=== PATIENT | male | born 1955 | race Caucasian/White ===

== ENCOUNTER 2020-05-29 08:57 | Inpatient (IN) ==
[2020-05-29] MEDS ORDERED: Clindamycin 900 MG/50 ML 900 MG/50 ML IV.SOLN IVPB ONE (09:16)
[2020-05-29] MEDS ORDERED: Ringers Solution, Lactated 1,000 ML IVC SCH (09:30)
[2020-05-29] MEDS ORDERED: Gabapentin 300 MG CAPSULE PO ONE (09:50)
[2020-05-29] MEDS ORDERED: Famotidine 20 MG/2 ML VIAL IVP ONE (09:50)
[2020-05-29] MEDS ORDERED: Acetaminophen IV 1,000 MG/100 ML BAG IVPB ONE (09:50)
[2020-05-29] MEDS ORDERED: *HR* OxyCODONE Immed Rel 5 MG TABLET PO PRN (09:58)
[2020-05-29] MEDS ORDERED: Ondansetron 4 MG/2 ML VIAL IVP ONE (09:58)
[2020-05-29] MEDS ORDERED: *HR* HYDROmorphone PF 0.5 MG/0.5 ML SYRINGE IVP PRN (09:58)
[2020-05-29] MEDS ORDERED: *HR* Promethazine 25 MG/ML VIAL IVP PRN (09:58)
[2020-05-29 10:30] LABS: Adenovirus Not Detected (Not Detect); Bordetella Pertussis Not Detected (Not Detect); Chlamydophila pneumoniae Not Detected (Not Detect); Coronavirus 229E Not Detected (Not Detect); Coronavirus HKU1 Not Detected (Not Detect); Coronavirus NL63 Not Detected (Not Detect); Coronavirus OC43 Not Detected (Not Detect); Human Metapneumovirus Not Detected (Not Detect); Human Rhinovirus/Enterovirus Not Detected (Not Detect); Influenza A Subtype 2009 H1 Not Detected (Not Detect); Influenza B Not Detected (Not Detect); Mycoplasma pneumoniae Not Detected (Not Detect); Parainfluenza Virus 1 Not Detected (Not Detect); Parainfluenza Virus 2 Not Detected (Not Detect); Parainfluenza Virus 3 Not Detected (Not Detect); Parainfluenza Virus 4 Not Detected (Not Detect); Respiratory Syncytial Virus Not Detected (Not Detect); SARS-CoV-2 Not Detected (Not Detect)
[2020-05-29] MEDS ORDERED: *HR* Rocuronium Bromide 50 MG/5 ML VIAL ONE (10:34)
[2020-05-29] MEDS ORDERED: Ondansetron 4 MG/2 ML VIAL ONE (10:34)
[2020-05-29] MEDS ORDERED: *HR* Succinylcholine 200 MG/10 ML VIAL IVP ONE (10:34)
[2020-05-29] MEDS ORDERED: Dexamethasone 4 MG/ML VIAL ONE (10:34)
[2020-05-29] MEDS ORDERED: *HR* FentaNYL (PF) 100 MCG/2 ML VIAL ONE ×2 (10:34→13:23)
[2020-05-29] MEDS ORDERED: Lidocaine -MPF 2% 2 ML VIAL ONE (10:34)
[2020-05-29] MEDS ORDERED: *HR* Propofol 200 MG/20 ML VIAL IVP ONE (10:35)
[2020-05-29] MEDS ORDERED: *HR* Midazolam HCl 2 MG/2 ML VIAL ONE (10:35)
[2020-05-29] MEDS ORDERED: *HR* PHENYLEPHRINE 1,000 MCG/10 ML SYRINGE IVP ONE ×3 (11:14→12:44)
[2020-05-29] MEDS ORDERED: *HR* HYDROMORPHONE 2 MG/ML VIAL ONE (13:22)
[2020-05-29] MEDS ORDERED: Naloxone 0.4 MG/ML INJ IVP PRN (14:17)
[2020-05-29] MEDS: *HR* Heparin 5,000 UNIT/ML VIAL SQ SCH ×2 (14:37→22:29)
[2020-05-29] MEDS: *HR* HYDROcodone/Acet 5/325 mg TABLET PO PRN (14:37)
[2020-05-29] MEDS: 0.9 % Sodium Chloride 1,000 ML IVC SCH (14:40)
[2020-05-29] MEDS: Gabapentin 300 MG CAPSULE PO SCH ×2 (15:44→19:25)
[2020-05-29] MEDS: Ipratropium/Albuterol Neb 3 ML IH SCH ×3 (15:48→23:18)
[2020-05-29] MEDS: Ketorolac 15 MG/ML VIAL IVP SCH ×2 (17:08→22:29)
[2020-05-29] MEDS: Famotidine 20 MG TABLET PO SCH (19:25)
[2020-05-29] MEDS: Sennosides/Docusate Sodium TABLET PO SCH (19:25)
[2020-05-30] MEDS: *HR* HYDROcodone/Acet 5/325 mg TABLET PO PRN ×3 (03:20→21:29)
[2020-05-30] MEDS: 0.9 % Sodium Chloride 1,000 ML IVC SCH (03:21)
[2020-05-30] MEDS: Ipratropium/Albuterol Neb 3 ML IH SCH ×6 (03:51→23:21)
[2020-05-30 05:33] LABS: Hematocrit 42.5 % (37.5-50.1); Hemoglobin 13.7 g/dL (12.9-16.9); Mean Corpuscular HGB Conc 32.2 g/dL (31.6-35.5); Mean Corpuscular Hemoglobin 29.7 pg (28.0-33.3); Mean Corpuscular Volume 92.2 fL (83.0-100.0); Mean Platelet Volume 9.9 fL (9.4-12.4); Platelet Count 248 K/mcL (140-400); Red Blood Count 4.61 M/mcL (4.19-5.50); Red Cell Distribution Width 13.9 % (11.5-14.5); White Blood Count 14.2 K/mcL (4.3-11.1)
[2020-05-30 05:51] LABS: % Iron Saturation 10 % (20-55); BUN/Creatinine Ratio 15 (6-26); Blood Urea Nitrogen 15 mg/dL (8-23); Calcium 8.4 mg/dL (8.6-10.3); Carbon Dioxide 23 mEq/L (23-29); Chloride 105 mEq/L (98-107); Glucose 144 mg/dL (70-105); Iron 27 mcg/dL (65-175); Magnesium 1.5 mg/dL (1.6-2.6); Osmolality,Calculated 281 (280-300); Sodium 134 mEq/L (136-145); Transferrin 184 mg/dL (203-362); eGFR For African Americans > 60 (> 60); eGFR For Non-African Americans > 60 (> 60)
[2020-05-30] MEDS: Ketorolac 15 MG/ML VIAL IVP SCH ×4 (07:59→23:37)
[2020-05-30] MEDS: Famotidine 20 MG TABLET PO SCH ×2 (07:59→21:21)
[2020-05-30] MEDS: Sennosides/Docusate Sodium TABLET PO SCH ×2 (07:59→21:21)
[2020-05-30] MEDS: Gabapentin 300 MG CAPSULE PO SCH ×3 (07:59→21:21)
[2020-05-30] MEDS: *HR* Heparin 5,000 UNIT/ML VIAL SQ SCH ×3 (08:00→21:23)
[2020-05-30] MEDS ORDERED: Iron Sucrose Complex 400 MG in 0.9 % Sodium Chloride 250 ML IVPB ONE (09:01)
[2020-05-31] MEDS: Ipratropium/Albuterol Neb 3 ML IH SCH ×6 (03:26→23:10)
[2020-05-31] MEDS: *HR* Heparin 5,000 UNIT/ML VIAL SQ SCH ×3 (05:38→20:45)
[2020-05-31] MEDS: Ketorolac 15 MG/ML VIAL IVP SCH ×4 (05:38→23:31)
[2020-05-31] MEDS: Sennosides/Docusate Sodium TABLET PO SCH ×2 (08:36→20:47)
[2020-05-31] MEDS: Famotidine 20 MG TABLET PO SCH ×2 (08:36→20:47)
[2020-05-31] MEDS: Gabapentin 300 MG CAPSULE PO SCH ×3 (08:36→20:47)
[2020-05-31] MEDS: Metoprolol XL (24 HR) Succ 25 MG TAB.ER.24H PO SCH (11:42)
[2020-06-01] MEDS: Ipratropium/Albuterol Neb 3 ML IH SCH ×6 (03:14→23:41)
[2020-06-01 05:26] LABS: Hemoglobin 13.1 g/dL (12.9-16.9); Mean Corpuscular HGB Conc 32.8 g/dL (31.6-35.5); Mean Corpuscular Hemoglobin 29.9 pg (28.0-33.3); Mean Corpuscular Volume 91.3 fL (83.0-100.0); Mean Platelet Volume 9.9 fL (9.4-12.4); Platelet Count 264 K/mcL (140-400); Red Blood Count 4.38 M/mcL (4.19-5.50); Red Cell Distribution Width 14.6 % (11.5-14.5); White Blood Count 11.3 K/mcL (4.3-11.1)
[2020-06-01 05:44] LABS: BUN/Creatinine Ratio 11 (6-26); Blood Urea Nitrogen 12 mg/dL (8-23); Carbon Dioxide 25 mEq/L (23-29); Chloride 108 mEq/L (98-107); Glucose 122 mg/dL (70-105); Magnesium 1.8 mg/dL (1.6-2.6); Osmolality,Calculated 287 (280-300); Potassium 4.4 mEq/L (3.5-5.1); Sodium 138 mEq/L (136-145); eGFR For African Americans > 60 (> 60); eGFR For Non-African Americans > 60 (> 60)
[2020-06-01] MEDS: Ketorolac 15 MG/ML VIAL IVP SCH ×4 (05:50→23:39)
[2020-06-01] MEDS: *HR* Heparin 5,000 UNIT/ML VIAL SQ SCH ×3 (05:50→21:31)
[2020-06-01] MEDS: Gabapentin 300 MG CAPSULE PO SCH ×3 (08:57→19:54)
[2020-06-01] MEDS: Sennosides/Docusate Sodium TABLET PO SCH ×2 (08:57→19:54)
[2020-06-01] MEDS: Metoprolol XL (24 HR) Succ 25 MG TAB.ER.24H PO SCH (08:57)
[2020-06-01] MEDS: Famotidine 20 MG TABLET PO SCH ×2 (08:57→19:54)
[2020-06-01] MEDS: *HR* HYDROcodone/Acet 5/325 mg TABLET PO PRN ×2 (09:01→22:13)
[2020-06-02] MEDS: Ipratropium/Albuterol Neb 3 ML IH SCH ×6 (03:39→23:18)
[2020-06-02] MEDS: Ketorolac 15 MG/ML VIAL IVP SCH ×3 (05:22→18:05)
[2020-06-02] MEDS: *HR* Heparin 5,000 UNIT/ML VIAL SQ SCH ×3 (05:22→20:02)
[2020-06-02] MEDS: Sennosides/Docusate Sodium TABLET PO SCH ×2 (07:51→20:03)
[2020-06-02] MEDS: Metoprolol XL (24 HR) Succ 25 MG TAB.ER.24H PO SCH (07:51)
[2020-06-02] MEDS: Famotidine 20 MG TABLET PO SCH ×2 (07:52→20:02)
[2020-06-02] MEDS: Gabapentin 300 MG CAPSULE PO SCH ×3 (07:52→20:03)
[2020-06-02] MEDS: *HR* HYDROcodone/Acet 5/325 mg TABLET PO PRN (20:03)
[2020-06-03] MEDS: Ketorolac 15 MG/ML VIAL IVP SCH ×3 (00:11→12:54)
[2020-06-03] MEDS: Ipratropium/Albuterol Neb 3 ML IH SCH ×3 (04:04→11:44)
[2020-06-03] MEDS: *HR* Heparin 5,000 UNIT/ML VIAL SQ SCH ×2 (04:56→12:54)
[2020-06-03 06:00] LABS: Hematocrit 42.2 % (37.5-50.1); Mean Corpuscular HGB Conc 33.2 g/dL (31.6-35.5); Mean Corpuscular Hemoglobin 30.8 pg (28.0-33.3); Mean Corpuscular Volume 92.7 fL (83.0-100.0); Mean Platelet Volume 9.7 fL (9.4-12.4); Platelet Count 290 K/mcL (140-400); Red Blood Count 4.55 M/mcL (4.19-5.50); Red Cell Distribution Width 14.9 % (11.5-14.5); White Blood Count 10.9 K/mcL (4.3-11.1)
[2020-06-03 06:27] LABS: BUN/Creatinine Ratio 19 (6-26); Blood Urea Nitrogen 22 mg/dL (8-23); Calcium 9.2 mg/dL (8.6-10.3); Carbon Dioxide 23 mEq/L (23-29); Chloride 105 mEq/L (98-107); Glucose 104 mg/dL (70-105); Magnesium 1.9 mg/dL (1.6-2.6); Osmolality,Calculated 286 (280-300); Potassium 4.5 mEq/L (3.5-5.1); Sodium 136 mEq/L (136-145); eGFR For African Americans > 60 (> 60); eGFR For Non-African Americans > 60 (> 60)
[2020-06-03] MEDS: Metoprolol XL (24 HR) Succ 25 MG TAB.ER.24H PO SCH (07:47)
[2020-06-03] MEDS: Gabapentin 300 MG CAPSULE PO SCH (07:47)
[2020-06-03] MEDS: Famotidine 20 MG TABLET PO SCH (07:47)
[2020-06-03] MEDS: *HR* HYDROcodone/Acet 5/325 mg TABLET PO PRN (07:48)
[2020-06-03] MEDS: Sennosides/Docusate Sodium TABLET PO SCH (07:50)
[2020-06-03 11:08] VITALS: BP 162/96
== END 2020-06-03 14:30 | disposition home or self-care (01) | DRG 165 ==
LOC: SAMDAY 08:57 → ICNU 13:45 → 2NNU 06-02 18:04
PROVIDERS: ADMIT Thoracic Surgery (Cardiothoracic Vascular Surgery); ATTEND Thoracic Surgery (Cardiothoracic Vascular Surgery)